=== PATIENT | female | born 1995 | race Caucasian/White ===

== ENCOUNTER 2017-03-21 08:10 | Emergency (ER) | payer OTHER ==
--- NOTE | 2017-03-21 08:52 | ERPHSYRPT ---
- History of Present Illness Time Seen by Provider: 03/21/17 08:32 Source: patient Exam Limitations: no limitations Physician History: The patient is a 22-year-old female who presents to the ER stating that she wants to kill her self. She woke up this morning feeling that no one loves her and that she is alone. She told her fianc who lives with her about this. She states he stopped her from taking an overdose of her medicines this morning. The medicines include Coumadin for a pulmonary embolism. She stated she wanted to take the entire bottle of Coumadin so she would . She has attempted to kill herself in the same way 3 other times over the past several months but the fianc has stopped her from taking the medicines. She states she has nothing to live for. She used to be a very happy person but now has been depressed for 2 years. She states her father moved away with his new to [place] when she was 13. She states that he left her. 4 years later while he was drunk, he shot himself in the head committing suicide. She states her mother loves her very much and would do anything for her. She is distraught that she wants to kill herself because her mother loves her so much. Her past medical history is significant for depression, pulmonary embolism, Leah's granulomatosis, and hypertension. During the interview with the patient, the patient was willing to be transported to [facility] for care and was actually wanting to be transported when she first came in. As her interview progressed, she wanted to go home immediately and finish out her plan to kill herself. At 2 times during the interview she took off her engagement ring and began trying to scratch her left wrist with the ring. She made a comment several times at the ring was not sharp enough to do the job of cutting to the skin and cutting her wrists. Her jewelry has been confiscated. Timing/Duration: today, gradual onset, worse Severity of Symptoms-Max: severe Severity of Symptoms-Current: severe Context related to: other (depression) Suicidal thoughts: specific plan Associated Symptoms: angry, anxiety, depressed, suicidal ideation Previous symptoms: same symptoms as today, no recent treatment Allergies/Adverse Reactions: No Known Drug Allergies Allergy (Unverified 03/21/17 08:32) Home Medications: Buspirone HCl 5 mg [Buspar 5 mg] 5 mg PO DAILY 03/21/17 [History] Furosemide 20 mg [Lasix 20 mg] 20 mg PO DAILY 03/21/17 [History] Venlafaxine HCl [Effexor Xr] 150 mg PO DAILY 03/21/17 [History] Warfarin Sodium 10 mg [Coumadin 10 MG] 10 mg PO DAILY 03/21/17 [History] - Review of Systems Constitutional: No Fever, No Chills Eyes: No Symptoms Ears, Nose, & Throat: No Symptoms Respiratory: No Cough, No Dyspnea Cardiac: No Chest Pain, No Edema, No Syncope Abdominal/Gastrointestinal: No Abdominal Pain, No Nausea, No Vomiting, No Diarrhea Genitourinary Symptoms: No Dysuria Musculoskeletal: No Back Pain, No Neck Pain Skin: No Rash Neurological: No Dizziness, No Focal Weakness, No Sensory Changes Psychological: Anxiety, Depression, Suicidal Ideations Endocrine: No Symptoms Hematologic/Lymphatic: No Symptoms Immunological/Allergic: No Symptoms All Other Systems: Reviewed and Negative - Nursing Vital Signs Nursing Vital Signs: Initial Vital Signs Temperature 97.9 F 03/21/17 08:19 Pulse Rate 113 H 03/21/17 08:19 Respiratory Rate 20 03/21/17 08:19 Blood Pressure 149/95 03/21/17 08:19 O2 Sat by Pulse Oximetry 98 03/21/17 08:19 Pain Scale Pain Intensity 0 - Physical Exam General Appearance: moderate distress Eyes, Ears, Nose, Throat Exam: normal ENT inspection, moist mucous membranes Neck Exam: normal inspection, non-tender, supple Respiratory Exam: normal breath sounds, lungs clear, No respiratory distress Cardiovascular Exam: regular rate/rhythm, No edema Gastrointestinal/Abdominal Exam: soft, No tenderness, No distention Extremities Exam: normal inspection, normal range of motion, No evidence of injury, No edema Current Suicidality: has suicide plan Neurological Exam: alert, 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, oriented x 3 Appearance: impaired insight Behavior/Eye Contact/Speech: normal speech, agitated Thoughts/Hallucinations: normal thought pattern Skin Exam: normal color, warm, dry, No rash SpO2 Interpretation: normal Ordered Tests: Active Orders 24 hr Category Date Time Status Psychiatric Evaluation STAT Care 03/21/17 08:58 Active Regular Diet Diet 03/21/17 Lunch Active ACETAMINOPHEN Stat Lab 03/21/17 09:10 Completed CBC W DIFF Stat Lab 03/21/17 09:10 Completed CMP Stat Lab 03/21/17 09:10 Completed CULTURE,URINE Stat Lab 03/21/17 09:10 Received ETHYL ALCOHOL Stat Lab 03/21/17 09:10 Completed HCG QUALITATIVE,SERUM Stat Lab 03/21/17 09:10 Completed SALICYLATE Stat Lab 03/21/17 09:10 Completed TSH, 3RD Generation Stat Lab 03/21/17 09:10 Completed UA W/ MICROSCOPIC Stat Lab 03/21/17 09:10 Completed Urine Triage Profile Stat Lab 03/21/17 09:10 Completed Medication Summary Discontinued Medications Generic Name Dose Route Start Last Admin Trade Name Freq PRN Reason Stop Dose Admin Lorazepam 2 mg 03/21/17 09:01 03/21/17 09:07 Ativan 1 Mg PO 03/21/17 09:02 2 mg STAT ONE Administration Lorazepam Confirm 03/21/17 09:06 Ativan 1 Mg Administered 03/21/17 09:07 Dose 2 mg .ROUTE .STK-MED ONE Potassium Chloride 20 meq 03/21/17 10:33 03/21/17 10:38 Klor Con 10 Meq PO 03/21/17 10:34 20 meq STAT ONE Administration Potassium Chloride Confirm 03/21/17 10:37 Klor Con 10 Meq Administered 03/21/17 10:38 Dose 20 meq PO .STK-MED ONE Lab/Rad Data: Laboratory Result Diagrams 03/21/17 09:10 03/21/17 09:10 Laboratory Results 03/21/17 03/21/17 03/21/17 Range/Units 09:10 09:10 09:10 WBC (4.0-10.5) K/mm3 RBC (4.1-5.4) M/mm3 Hgb (12.0-16.0) gm/dl Hct (35-47) % MCV (78-100) fl MCH (26-32) pg MCHC (32-36) g/dl RDW (11.5-14.0) % Plt Count (150-450) K/mm3 MPV (6-9.5) fl Gran % (36.0-66.0) % Lymphocytes % (24.0-44.0) % Monocytes % (0.0-12.0) % Eosinophils % (0.00-5.0) % Basophils % (0.0-0.4) % Basophils # (0-0.4) Sodium (136-145) mEq/L Potassium (3.5-5.1) mEq/L Chloride (98-107) mEq/L Carbon Dioxide (21-32) mEq/L Anion Gap (5-15) MEQ/L BUN (9-20) mg/dL Creatinine (0.55-1.30) mg/dl Estimated GFR ML/MIN Glucose (70-110) MG/DL Calcium (8.5-10.1) mg/dL Total Bilirubin (0.2-1.0) mg/dL AST (15-37) U/L ALT (12-78) U/L Alkaline Phosphatase (46-116) U/L Serum Total Protein (6.4-8.2) gm/dL Albumin (3.4-5.0) g/dL TSH 3rd Generation (0.358-3.740) mIU/L Serum , Qual NEGATIVE (Negative) Ur Collection Type VOID Urine Color YELLOW (YELLOW) Urine Appearance CLEAR (CLEAR) Urine pH 5.0 (5-6) Ur Specific Yancey 1.020 (1.005-1.025) Urine Protein 500 (Negative) Urine Ketones NEGATIVE (NEGATIVE) Urine Blood 5-10 (0-5) Steve/ul Urine Nitrite NEGATIVE (NEGATIVE) Urine Bilirubin NEGATIVE (NEGATIVE) Urine Urobilinogen NORMAL (0-1) mg/dL Ur Leukocyte Esterase NEGATIVE (NEGATIVE) Urine Microscopic RBC 2-5 (0-2) /HPF Urine Microscopic WBC 2-5 (0-5) /HPF Ur Epithelial Cells FEW (FEW) /HPF Urine Bacteria FEW (NEGATIVE) /HPF Hyaline Casts 5-10 (0-2) /LPF Urine Culture Reflexed YES (NO) Urine Glucose NEGATIVE (NEGATIVE) mg/dL Salicylates (2.8-20.0) mg/dl Urine Opiates Level NEG. (NEGATIVE) Ur Methadone NEG. (NEGATIVE) Acetaminophen (10-30) ug/ml Urine Barbiturates NEG. (NEGATIVE) Ur Phencyclidine (PCP) NEG. (NEGATIVE) Urine Amphetamine NEG. (NEGATIVE) U Benzodiazepine Level NEG. (NEGATIVE) Urine Cocaine NEG. (NEGATIVE) Urine Marijuana (THC) NEG. (NEGATIVE) Ethyl Alcohol (0.00-0.01) % Specimen Received 03/21/17 0920 03/21/17 03/21/17 Range/Units 09:10 09:10 WBC 6.5 (4.0-10.5) K/mm3 RBC 4.44 (4.1-5.4) M/mm3 Hgb 14.3 (12.0-16.0) gm/dl Hct 42.5 (35-47) % MCV 95.7 (78-100) fl MCH 32.2 H (26-32) pg MCHC 33.6 (32-36) g/dl RDW 12.2 (11.5-14.0) % Plt Count 208 (150-450) K/mm3 MPV 9.4 (6-9.5) fl Gran % 68.9 H (36.0-66.0) % Lymphocytes % 18.1 L (24.0-44.0) % Monocytes % 11.3 (0.0-12.0) % Eosinophils % 1.4 (0.00-5.0) % Basophils % 0.3 (0.0-0.4) % Basophils # 0.02 (0-0.4) Sodium 144 (136-145) mEq/L Potassium 3.3 L (3.5-5.1) mEq/L Chloride 108 H (98-107) mEq/L Carbon Dioxide 27.5 (21-32) mEq/L Anion Gap 12.1 (5-15) MEQ/L BUN 13 (9-20) mg/dL Creatinine 1.32 H (0.55-1.30) mg/dl Estimated GFR 53 ML/MIN Glucose 108 (70-110) MG/DL Calcium 8.7 (8.5-10.1) mg/dL Total Bilirubin 0.20 (0.2-1.0) mg/dL AST 24 (15-37) U/L ALT 35 (12-78) U/L Alkaline Phosphatase 103 (46-116) U/L Serum Total Protein 6.9 (6.4-8.2) gm/dL Albumin 3.7 (3.4-5.0) g/dL TSH 3rd Generation 2.717 (0.358-3.740) mIU/L Serum , Qual (Negative) Ur Collection Type Urine Color (YELLOW) Urine Appearance (CLEAR) Urine pH (5-6) Ur Specific Yancey (1.005-1.025) Urine Protein (Negative) Urine Ketones (NEGATIVE) Urine Blood (0-5) Steve/ul Urine Nitrite (NEGATIVE) Urine Bilirubin (NEGATIVE) Urine Urobilinogen (0-1) mg/dL Ur Leukocyte Esterase (NEGATIVE) Urine Microscopic RBC (0-2) /HPF Urine Microscopic WBC (0-5) /HPF Ur Epithelial Cells (FEW) /HPF Urine Bacteria (NEGATIVE) /HPF Hyaline Casts (0-2) /LPF Urine Culture Reflexed (NO) Urine Glucose (NEGATIVE) mg/dL Salicylates < 2.8 L (2.8-20.0) mg/dl Urine Opiates Level (NEGATIVE) Ur Methadone (NEGATIVE) Acetaminophen < 2.0 L (10-30) ug/ml Urine Barbiturates (NEGATIVE) Ur Phencyclidine (PCP) (NEGATIVE) Urine Amphetamine (NEGATIVE) U Benzodiazepine Level (NEGATIVE) Urine Cocaine (NEGATIVE) Urine Marijuana (THC) (NEGATIVE) Ethyl Alcohol < 0.010 (0.00-0.01) % Specimen Received - Progress Progress: improved Progress Note: 03/21/17 09:15 The patient agreed to take Ativan to help calm her nerves. The patient was given Ativan 2 mg by mouth. 03/21/17 14:06 The patient has remained calm after Ativan. 03/21/17 14:07 The patient has been medically cleared for transfer to [facility] for psychiatric evaluation by Dr. Fernandez. Counseled pt/family regarding: lab results, diagnosis - Departure Time of Disposition: 14:08 Departure Disposition: Transfer (transfer to [facility]) Clinical Impression: Depression with suicidal ideation Condition: Stable Critical Care Time: No Referrals: MARCOS GEORGE [Primary Care Provider] - Additional Instructions: You have an exacerbation of depression and now with suicide ideation. You have been considered a significant threat to your own life and are being held under emergency halfway. You are being sent to [facility] for further psychiatric evaluation and treatment.
[2017-03-21] MEDS ORDERED: Ativan 1 MG PO ONE (09:01)
[2017-03-21] MEDS ORDERED: Ativan 1 MG ONE (09:06)
[2017-03-21 09:19] LABS: BASOPHIL % 0.3 % (0.0-0.4); Eosinophil % 1.4 % (0.00-5.0); Granulocytes % 68.9 % (36.0-66.0); Lymphocytes % 18.1 % (24.0-44.0); Mean Cell Volume 95.7 fl (78-100); Mean Corpuscular Hemoglobin 32.2 pg (26-32); Mean Platelet Volume 9.4 fl (6-9.5); Monocytes % 11.3 % (0.0-12.0); Platelet Count 208 K/mm3 (150-450); Red Blood Count 4.44 M/mm3 (4.1-5.4); Red Cell Distribution Width 12.2 % (11.5-14.0); White Blood Count 6.5 K/mm3 (4.0-10.5)
[2017-03-21 09:40] LABS: Collection Type VOID
[2017-03-21 09:43] LABS: Bilirubin NEGATIVE (NEGATIVE); Glucose NEGATIVE (NEGATIVE); Leukocyte Esterase NEGATIVE (NEGATIVE)
[2017-03-21 09:44] LABS: ADD URINE CULTURE? YES (NO); Bacteria FEW /HPF (NEGATIVE); COMPLETE URINE MICROSCOPIC? YES; Epithelial Cells FEW /HPF (FEW)
[2017-03-21 09:47] LABS: ALBUMIN 3.7 g/dL (3.4-5.0); ALKALINE PHOSPHATASE 103 U/L (46-116); ANION GAP 12.1 MEQ/L (5-15); BLOOD UREA NITROGEN 13 mg/dL (9-20); CHLORIDE 108 mEq/L (98-107); Carbon Dioxide 27.5 mEq/L (21-32); ETHYL ALCOHOL < 0.010 % (0.00-0.01); Glucose 108 MG/DL (70-110); Potassium 3.3 mEq/L (3.5-5.1); SGOT/AST 24 U/L (15-37); SGPT/ALT 35 U/L (12-78); SODIUM 144 mEq/L (136-145); Total Protein 6.9 gm/dL (6.4-8.2)
[2017-03-21 09:49] LABS: ACETAMINOPHEN < 2.0 ug/ml (10-30)
[2017-03-21] MEDS ORDERED: Klor Con 10 MEQ PO ONE ×2 (10:33→10:37)
[2017-03-21 11:22] VITALS: O2SAT 98
[2017-03-21 14:16] VITALS: BP 124/72; PULSE 80
== END 2017-03-21 15:15 | disposition short-term general hospital (02) ==
LOC: ED 08:10
DX: F32.9 Major depressive disorder, single episode, unspecified (principal); R45.851 Suicidal ideations; Z79.01 Long term (current) use of anticoagulants; Z86.711 Personal history of pulmonary embolism; Z79.899 Other long term (current) drug therapy
CPT/HCPCS: 36415; 80053; 80307; 81000; 84443; 84703; 85025; 87086; 90791; 99285; G0481; Q3014; A9270-GY

== ENCOUNTER 2022-04-15 07:02 | Day surgery (SDC) | payer OTHER ==
[~2022-04-15 07:02] MED LIST: Lactated Ringers 1,000 ML IV SCH
[2022-04-15] MEDS ORDERED: XYLOCAINE 1%/Epi 1:100000 MDV 20 ML ONE (07:13)
[2022-04-15] MEDS ORDERED: ASTRINGYN 8 GM TP ONE (07:13)
[2022-04-15] MEDS ORDERED: Lactated Ringers 1,000 ML IV ONE (07:49)
[2022-04-15] MEDS ORDERED: Versed 2 MG/2 ML Injection ONE (09:35)
[2022-04-15] MEDS ORDERED: DIPRIVAN 200 MG/20 ML IV ONE (09:35)
[2022-04-15] MEDS ORDERED: SUBLIMAZE 100 MCG/2 ML ONE (09:35)
[2022-04-15] MEDS ORDERED: Zofran 4 MG/2 ML VIAL ONE (09:36)
[2022-04-15] MEDS ORDERED: Decadron 4 MG INJ ONE (09:36)
[2022-04-15] MEDS ORDERED: Xylocaine-Mpf 2% 5 Ml Vial ONE (09:59)
[2022-04-15 11:23] VITALS: O2SAT 99
[2022-04-15 11:24] VITALS: BP 125/82; PULSE 63
--- NOTE | 2022-04-16 08:53 | OP ---
SURGERY DATE/TIME: 04/15/2022 0942 PREOPERATIVE DIAGNOSIS: Severe cervical dysplasia. POSTOPERATIVE DIAGNOSIS: Severe cervical dysplasia. PROCEDURE: Loop electrosurgical excision procedure (LEEP). SURGEON: Cameron Goode D.O. SECTION CREWS ACTIVITIES CLERK: Mirna Blackburn surgical instruments inspector. ANESTHESIA: General. ESTIMATED BLOOD LOSS: Minimal. COMPLICATIONS: None. INDICATIONS: The risks, benefits, indications and alternatives of the procedure were reviewed with the patient prior to procedure. The patient understood the risk of infection, bleeding, uterine perforation, cervical incompetence and thromboembolic disorder associated with this surgery and desires to have this surgery as a possible means to alleviate her current medical condition. DESCRIPTION OF PROCEDURE AND FINDINGS: At this point the patient is taken to the operating room, given general sedation, placed in the dorsal lithotomy position, prepped and draped in the usual sterile fashion. A coated speculum is then placed into the patient's vagina and the cervix is then injected circumferentially with 1% lidocaine with epinephrine and approximately 6 cc was used. From this point the loop instrument was then used to excise the ectocervical region where in depth of 7 to 8 mm of ectocervical tissue was excised without complication with a right to left motion. After this an additional 2 to 3 mm of endocervical tissue was excised in a similar fashion of endocervical tissue. From this point, hemostasis was obtained by placing a loop interior wirer ball on the surface of the cervix and hemostasis was obtained. After completion, Monsel solution was placed on the surface of the cervix. From this point, all instruments were removed from the patient's vaginal region. The patient was then taken out of the dorsal lithotomy position, was then taken out of anesthesia and was then taken to the recovery room in stable condition. All instruments and laps were accounted for x2.
== END 2022-04-15 11:38 | disposition home or self-care (01) ==
LOC: SDC 07:02
PROVIDERS: ATTEND Obstetrics & Gynecology
DX: D06.9 Carcinoma in situ of cervix, unspecified (principal)
CPT/HCPCS: 81025; J1100; J2250; J2405; J2704; J3010; A9270-GY

== ENCOUNTER 2023-12-10 08:48 | Emergency (ER) | payer OTHER ==
[2023-12-10 08:56] VITALS: TEMP 97.5
[2023-12-10 09:29] LABS: Absolute Neutrophil Ct (ANC) 3.63 x10^3/uL (1.56-6.13); BASOPHIL % 0.7 % (0.1-1.2); Basophil (Absolute #) 0.04 x10^3/uL (0.01-0.08); Eosinophil % 0.9 % (0.7-5.8); Eosinophil (Absolute #) 0.05 x10^3/uL (0.04-0.36); Hematocrit 37.7 % (34.1-44.9); Hemoglobin 12.3 g/dL (11.2-15.7); IMMATURE GRAN # 0.02 x10^3u/L (0.001-0.031); IMMATURE GRAN % 0.3 % (0.001-0.429); Lymphocyte (Absolute #) 0.99 x10^3/uL (1.18-3.74); Mean Cell Volume 96.7 fL (79.4-94.8); Mean Corpuscular Hemoglobin 31.5 pg (25.6-32.2); Mean Corpuscular Hgb Concent. 32.6 g/dL (32.2-35.5); Mean Platelet Volume 9.3 fL (9.4-12.3); Monocyte (Absolute #) 1.11 x10^3/uL (0.24-0.86); Neutrophil % 62.1 % (34.0-71.1); Platelet Count 223 x10^3/uL (182-369); Red Cell Distribution Width 12.6 % (11.7-14.4); White Blood Count 5.8 x10^3/uL (3.98-10.04)
[2023-12-10 10:03] LABS: ISTAT CREA 1.6 mg/dL (0.6-1.3); ISTAT iCA 1.13 mmol/L (1.12-1.32)
[2023-12-10] MEDS ORDERED: Sodium Chloride 0.9% 1000 ML 1,000 ML ONE (10:39)
[2023-12-10] MEDS: Sodium Chloride 0.9% 1000 ML 1,000 ML IV STA (10:44)
[2023-12-10 10:50] VITALS: O2SAT 98
--- NOTE | 2023-12-10 11:00 | XRAY ---
Indication: Short of breath. History PE. Multiple contiguous axial images obtained through the chest using 80 cc Isovue 370 contrast and PE protocol. Comparison: None Adequate opacification of the pulmonary arteries to include the lobar and segmental branches. No pulmonary embolus. Heart not enlarged. Aorta is normal in course and caliber. No pathologic mediastinal/hilar lymphadenopathy. Lungs inflated and clear. Bony thorax intact. Limited upper abdomen demonstrates fatty liver. Impression: Normal CT chest pulmonary embolus exam. Incidental fatty liver.
--- NOTE | 2023-12-10 12:34 | ERPHSYRPT ---
- History of Present Illness Time Seen by Provider: 12/10/23 09:02 Source: patient Exam Limitations: no limitations Patient Subjective Stated Complaint: pt here for sob getting worse for over a month now, since she got back from vacation. 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 Occasional cough nonproductive. No history of coronary artery disease. No fever or chills reported. Allergies/Adverse Reactions: clindamycin Allergy (Intermediate, Verified 12/10/23 08:53) Itching desvenlafaxine [From Pristiq] Adverse Reaction (Severe, Verified 12/10/23 08:53) Difficulty Breathing Home Medications: Biotin 1 tab PO UD 03/24/22 [History] Escitalopram Oxalate [Lexapro] 20 mg PO DAILY 03/24/22 [History] Lansoprazole [Prevacid] 30 mg PO DAILY 03/24/22 [History] Losartan Potassium 50 mg [Cozaar 50 MG] 20 mg PO DAILY 03/24/22 [History] Magnesium Oxide [Mag-Oxide Magnesium] 200 mg PO UD 03/24/22 [History] Potassium Citrate [Potassium] 99 mg PO UD 03/24/22 [History] azaTHIOprine [Imuran] 100 mg PO UD 03/24/22 [History] predniSONE [Prednisone] 5 mg PO DAILY 03/24/22 [History] Rivaroxaban [Xarelto] 20 mg PO DAILY 04/15/22 [History] Hx Tetanus, Diphtheria Vaccination/Date Given: No Hx Influenza Vaccination/Date Given: No Hx Pneumococcal Vaccination/Date Given: No Immunizations Up to Date: Yes Travel Risk - International Travel Have you traveled outside of the country in past 3 weeks: No - Emerging Infectious Disease Are you exhibiting symptoms associated with any current EIDs: Yes Symptoms: Shortness of Breath - Review of Systems Constitutional: No Symptoms Eyes: No Symptoms Ears, Nose, & Throat: No Symptoms Respiratory: Cough, Dyspnea Cardiac: Chest Pain Abdominal/Gastrointestinal: No Symptoms Genitourinary Symptoms: No Symptoms Musculoskeletal: No Symptoms Skin: No Symptoms Neurological: No Symptoms Psychological: No Symptoms Hematologic/Lymphatic: Blood Clots Immunological/Allergic: Other - Past Medical History Pertinent Past Medical History: Yes Neurological History: No Pertinent History ENT History: No Pertinent History Cardiac History: Hypertension Respiratory History: Pulmonary Embolism Endocrine Medical History: No Pertinent History Musculoskeletal History: No Pertinent History GI Medical History: No Pertinent History History: Renal Disease Psycho-Social History: Anxiety, Depression Female Reproductive Disorders: Other Other Medical History: WEGNERS granuloma GPA, kidney auto immune disease, states "uterine pre cancerous places",dvt - Past Surgical History Past Surgical History: Yes Neuro Surgical History: No Pertinent History Cardiac: No Pertinent History Respiratory: No Pertinent History Gastrointestinal: No Pertinent History Genitourinary: No Pertinent History Musculoskeletal: Other Female Surgical History: Tubal Ligation Other Surgical History: bone marrow bx 2010,kidney bx 2007,IVC filter placed and removed 2008 and 2009 - Female History Hx Last Menstrual Period: may Hx Now: (unkn) - Social History Smoking Status: Never smoker Exposure to second hand smoke: Yes Drug Use: none Patient Lives Alone: No - Social Determinants of Health Will the patient participate in the screening: Yes Do you worry about a steady place to live?: No Do you have any problems with any of the following?: No known problems In the past 12 months,have you had to go without utilities?: No Transportation Issues: No Has anyone in your support network made you feel unsafe?: No Have you or anyone in your house had to go without enough: No - Nursing Vital Signs Nursing Vital Signs: Initial Vital Signs Temperature 97.5 F 12/10/23 08:55 Pulse Rate 75 12/10/23 08:55 Respiratory Rate 16 12/10/23 08:55 Blood Pressure 131/87 12/10/23 08:55 O2 Sat by Pulse Oximetry 99 12/10/23 08:55 Pain Scale Pain Intensity 2 - Physical Exam General Appearance: no apparent distress, alert Eye Exam: PERRL/EOMI Ears, Nose, Throat Exam: hearing grossly normal, normal ENT inspection, normal pharynx Neck Exam: normal inspection, non-tender, supple, full range of motion Respiratory Exam: normal breath sounds, lungs clear Cardiovascular/Chest Exam: normal heart sounds, regular rate/rhythm Abdominal/Gastrointestinal Exam: soft, normal bowel sounds, No tenderness Extremity Exam: non-tender, normal range of motion Neurologic Exam: alert, oriented x 3, cooperative Skin Exam: normal color SpO2 Interpretation: normal SpO2: 98 O2 Delivery: Room Air - Course EKG Interpreted by Me: RATE (69), Sinus Rhythm, NORMAL AXIS, NORMAL INTERVALS, NORMAL QRS Ordered Tests: Medication Summary Discontinued Medications Generic Name Dose Route Start Last Admin Trade Name Bryan PRN Reason Stop Dose Admin Sodium Chloride 1,000 mls @ 999 mls/hr 12/10/23 10:15 12/10/23 11:48 Sodium Chloride 0.9% 1000 Ml IV 12/10/23 11:15 Infused .Q1H1M STA Infusion Sodium Chloride Confirm 12/10/23 10:39 Sodium Chloride 0.9% 1000 Ml Administered 12/10/23 10:40 Dose 1,000 mls @ ud .ROUTE .K-MED ONE Lab/Rad Data: Laboratory Result Diagrams 12/10/23 09:28 12/10/23 09:28 Laboratory Results 12/10/23 12/10/23 12/10/23 Range/Units 09:28 09:28 09:28 WBC (3.98-10.04) x10^3/uL RBC (3.93-5.22) x10^6/uL Hgb (11.2-15.7) g/dL Hct (34.1-44.9) % MCV (79.4-94.8) fL MCH (25.6-32.2) pg MCHC (32.2-35.5) g/dL RDW (11.7-14.4) % Plt Count (182-369) x10^3/uL MPV (9.4-12.3) fL Gran % (34.0-71.1) % Immature Gran % (Auto) (0.001-0.429) % Nucleat RBC Rel Count (0.00-0.2) % Eos # (Auto) (0.04-0.36) x10^3/uL Immature Gran # (Auto) (0.001-0.031) x10^3u/L Absolute Lymphs (auto) (1.18-3.74) x10^3/uL Absolute Monos (auto) (0.24-0.86) x10^3/uL Absolute Nucleated RBC (0.00-0.012) x10^3u/L Lymphocytes % (19.3-51.7) % Monocytes % (4.7-12.5) % Eosinophils % (0.7-5.8) % Basophils % (0.1-1.2) % Absolute Granulocytes (1.56-6.13) x10^3/uL Basophils # (0.01-0.08) x10^3/uL D-Dimer 0.29 (0.0-0.50) mg/L Sodium Direct 143 (138-146) mmol/L Potassium 4.0 (3.5-4.9) mmol/L Chloride 108 (98-109) mmol/L Carbon Dioxide 23 L (24-29) mmol/L Venous BUN 23 (8-26) mg/dL Creatinine 1.6 H (0.6-1.3) mg/dL Glucose 97 (70-105) mg/dL Ionized Calcium 1.13 (1.12-1.32) mmol/L Troponin 0.00 (0.00-0.03) ng/mL NT-Pro-B Natriuret Pep (<300) pg/mL 12/10/23 Range/Units 09:28 WBC 5.8 (3.98-10.04) x10^3/uL RBC 3.90 L (3.93-5.22) x10^6/uL Hgb 12.3 (11.2-15.7) g/dL Hct 37.7 (34.1-44.9) % MCV 96.7 H (79.4-94.8) fL MCH 31.5 (25.6-32.2) pg MCHC 32.6 (32.2-35.5) g/dL RDW 12.6 (11.7-14.4) % Plt Count 223 (182-369) x10^3/uL MPV 9.3 L (9.4-12.3) fL Gran % 62.1 (34.0-71.1) % Immature Gran % (Auto) 0.3 (0.001-0.429) % Nucleat RBC Rel Count 0.0 (0.00-0.2) % Eos # (Auto) 0.05 (0.04-0.36) x10^3/uL Immature Gran # (Auto) 0.02 (0.001-0.031) x10^3u/L Absolute Lymphs (auto) 0.99 L (1.18-3.74) x10^3/uL Absolute Monos (auto) 1.11 H (0.24-0.86) x10^3/uL Absolute Nucleated RBC 0.00 (0.00-0.012) x10^3u/L Lymphocytes % 17.0 L (19.3-51.7) % Monocytes % 19.0 H (4.7-12.5) % Eosinophils % 0.9 (0.7-5.8) % Basophils % 0.7 (0.1-1.2) % Absolute Granulocytes 3.63 (1.56-6.13) x10^3/uL Basophils # 0.04 (0.01-0.08) x10^3/uL D-Dimer (0.0-0.50) mg/L Sodium Direct (138-146) mmol/L Potassium (3.5-4.9) mmol/L Chloride (98-109) mmol/L Carbon Dioxide (24-29) mmol/L Venous BUN (8-26) mg/dL Creatinine (0.6-1.3) mg/dL Glucose (70-105) mg/dL Ionized Calcium (1.12-1.32) mmol/L Troponin (0.00-0.03) ng/mL NT-Pro-B Natriuret Pep (<300) pg/mL - Progress Progress: improved, re-examined Air Movement: good Progress Note: 12/10/23 12:33 28-year-old female with 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 Patient does have a history of long travel before the symptoms started almost a month ago and gradually worsening. He EKG is normal sinus rhythm with no acute ischemic changes. She is given fluid bolus. Workup showed normal white count, negative troponin and D-dimer, patient was very concerned about the fact that she had a similar symptoms last time when she had a PE. I have obtained CTA chest which is negative for PE or any other acute intrathoracic findings. Patient is thoroughly counseled, recommended continue with current medications. Patient has a creatinine of 1.6, recommended outpatient follow-up with nephrology for further evaluation. She is advised to drink plenty of fluids. Patient is an RN working at [employer] and she will follow-up with biologist aide there. I will give her albuterol for symptomatic relief. With patient's symptoms going on for quite some time and 1 negative troponin is enough to rule out, do not think patient needs any other workup and is being discharged. Blood Culture(s) Obtained: No Antibiotics given: No Counseled pt/family regarding: lab results, diagnosis, need for follow-up, rad results Medical Desision Making - Diagnostic Testing Diagnostic test were ordered, analyzed, and reviewed by me: Yes Radiological Interpretation: Reviewed by me - Risk of complications The pt has a mod risk of morbidity or mortality based on: Need for prescription drug management - Departure Departure Disposition: Home Clinical Impression: Dyspnea, Atypical chest pain Condition: Stable Critical Care Time: No Referrals: ASIF OLGUIN MD [Primary Care Provider] - Follow up with PCP 1 day Instructions: Shortness of Breath (Dyspnea) (DC) Additional Instructions: Follow-up with primary care for reevaluation and if have persistent chest pain may need cardiology referral. Continue with Xarelto. Return to ER for any worsening. Prescriptions: Albuterol Sulfate [Albuterol Sulfate Hfa] 8.5 gm IH Q6H PRN 7 Days #1 inh PRN Reason: Cough
[2023-12-10 12:56] VITALS: BP 111/70; PULSE 73; RESP 25
== END 2023-12-10 13:03 | disposition home or self-care (01) ==
LOC: ED 08:48
DX: R06.00 Dyspnea, unspecified (principal); R07.89 Other chest pain; I10 Essential (primary) hypertension; E78.5 Hyperlipidemia, unspecified; Z79.01 Long term (current) use of anticoagulants; Z79.899 Other long term (current) drug therapy
CPT/HCPCS: 36000; 36415; 71260; 80047; 83735; 83880; 84484; 85025; 85379; 93005; 93041; 99284